=== PATIENT | male | born 1995 | race Caucasian/White ===

== ENCOUNTER 2021-01-22 02:09 | Emergency (ER) | payer SELFPAY ==
[~2021-01-22] VITALS: Ht 172.7 cm; Wt 95.7 kg
[2021-01-22 02:19] VITALS: BP 138/88
[2021-01-22 04:10] VITALS: BP 138/88
--- NOTE | 2021-01-22 04:11 | NUR ---
PATIENT BIB [employer]. PATIENT EXAMINED BY . PATIENT MEDICALLY CLEARED AND RELEASED IN CUSTODY IN STABLE CONDITION. ORIGINAL PRE-BOOK FORM GIVEN TO OFFICER JOSIE.
== END 2021-01-22 04:06 | disposition home or self-care (01) ==
LOC: MED 02:09
DX: S62.394A Other fracture of fourth metacarpal bone, right hand, initial encounter for closed fracture (principal); V49.9XXA Car occupant (driver) (passenger) injured in unspecified traffic accident, initial encounter; Y93.89 Activity, other specified; Y92.410 Unspecified street and highway as the place of occurrence of the external cause; Y99.8 Other external cause status
CPT/HCPCS: 73130; 99283